=== PATIENT | male | born 1940 | race Caucasian/White ===

== ENCOUNTER → 2016-07-17 08:42 | Outpatient (CLI) | payer MEDICARE ==
[2015-05-26 11:50] VITALS: BMI 27.6
[~2016-07-17 08:42] MED LIST: ADVAIR 250/501 DISK INH; ARICEPT10 MG PO; BACTROBAN NASAL1 GM NASAL; BAYER CHEWABLE81 MG PO; CORDARONE200 MG PO; ELIQUIS2.5 MG PO; FLOMAX0.4 MG PO; LIPITOR40 MG PO; LISINOPRIL5 MG PO; METOPROLOL TART50 MG PO; NITROSTAT0.4 MG SL; PROVENTIL HFA6.7 GM INH; SINEMET 25-1001 EACH PO; SPIRIVA18 MCG INH; ULTRAM50 MG PO; VIAGRA25 MG PO
== END | disposition home or self-care (01) ==
LOC: D.RT 08:42
DX: J44.9 Chronic obstructive pulmonary disease, unspecified (principal)

== ENCOUNTER → 2016-12-18 07:58 | Outpatient (CLI) | payer MEDICARE ==
[2015-05-26 11:50] VITALS: BMI 27.6
== END | disposition home or self-care (01) ==
LOC: D.US 07:58
DX: I71.4 Abdominal aortic aneurysm, without rupture (principal)

== ENCOUNTER 2017-03-05 13:14 | Emergency (ER) | payer MEDICARE ==
[2015-05-26 11:50] VITALS: BMI 27.6
[2017-03-05 14:55] LABS: BASOPHILS 0.3 % (0-2); HEMATOCRIT 40.3 % (42.0-54.0); IMMATURE GRANULOCYTES 0.5 % (0-5); LYMPHOCYTES 19.3 % (15-50); MCH 33.5 pg (26.0-34.0); MCHC 32.3 g/dL (31.0-37.0); MCV 103.9 fL (80.0-100.0); MEAN PLATELET VOLUME 9.6 fL (7.4-10.4); NEUTROPHILS 62.9 % (40-80); PLATELET COUNT 237 10x3/uL (130-400); RBC 3.88 10x6/uL (4.20-6.10); RDW 14.2 % (11.5-14.5)
[2017-03-05 15:06] LABS: APPEARANCE TURBID (CLEAR); BILIRUBIN NEGATIVE (NEGATIVE); COLOR RED (YELLOW); GLUCOSE NEGATIVE (NEGATIVE); KETONE NEGATIVE (NEGATIVE); NITRITE NEGATIVE (NEGATIVE); PROTEIN 1+ mg/dL (NEGATIVE); SPECIFIC GRAVITY 1.015 (1.005-1.020); UROBILINOGEN NORMAL (NORMAL)
[2017-03-05 15:07] LABS: BACTERIA MANY /hpf (NONE SEEN); RED CELLS - URINE >50 /hpf (0-5); WHITE CELLS - URINE 0-5 /hpf (0-5)
[2017-03-05 15:14] LABS: ALBUMIN 3.9 g/dL (3.4-5.0); ANION GAP 14.7 mmol/L (8-16); BILIRUBIN - TOTAL 0.62 mg/dL (0.2-1.3); CREATININE - SERUM 1.1 mg/dL (0.6-1.3); POTASSIUM - SERUM 4.7 mmol/L (3.5-5.1); PROTEIN - SERUM 7.2 g/dL (6.4-8.2)
[2017-03-07] MEDS ORDERED: ASPIRIN EC81 M1 PO (16:17)
[2017-03-07] MEDS ORDERED: SINEMET 25-1001 EACH PO (16:22)
== END 2017-03-05 18:10 | disposition home or self-care (01) ==
LOC: D.ER 13:14
PROVIDERS: Family Medicine
DX: R31.9 Hematuria, unspecified (principal)

== ENCOUNTER 2017-03-09 06:00 | Day surgery (SDC) | payer MEDICARE ==
[~2017-03-09] VITALS: Ht 172.7 cm; Wt 77.3 kg
[~2017-03-09 06:00] MED LIST changes: +ASPIRIN EC81 M1 PO
[2017-03-09 12:54] VITALS: BP 98/62; BMI 26.6
--- NOTE | 2017-03-09 16:16 | NUR ---
2500 ML URINE DRAINED FROM LOPEZ IN PACU
[2017-03-09 17:03] VITALS: BP 174/99
--- NOTE | 2017-03-09 17:10 | NUR ---
PT ARRIVED TO FLOOR FROM RECOVERY ROOM. ASSESSMENTS COMPLETE AT THIS TIME. AT BEDSIDE.
[2017-03-09 17:18] VITALS: BP 174/99; Ht 172.7 cm; Wt 77.3 kg
--- NOTE | 2017-03-09 17:38 | OP ---
PATIENT NAME: BETTY HAMMOND JR MEDICAL RECORD: [id number] :40 LOCATION:D.MS [id number] ADMISSION DATE: SURGEON: RAMOS AUGUSTE MD DATE OF OPERATION: 03/09/2017 SURGEON: Ramos Auguste MD ANESTHESIA: General anesthesia by Martin Whiting MD PREOPERATIVE DIAGNOSES: Gross hematuria, possible bladder tumor. PROCEDURES: Cystoscopy; insertion of a left ureteral stent; and bladder tumor resection, 3 cm. FINDINGS: Nonobstructive prostate. Large fungating tumor mass on the left lateral wall of the bladder, about 3 cm in diameter. Tumor is close to the left ureteral orifice. SPECIMENS: Bladder tumor. BLOOD LOSS: Minimal. CLINICAL HISTORY: This is a 76-year-old male who is referred by Dr. Ulrich with gross hematuria and passage of clots. The hematuria is painless. It started on 03/02/2017. He went to the Emergency Room. A CT scan shows normal kidneys with a 2-mm nonobstructing right renal stone. There are large masses in the bladder, which maybe blood clots, but there may also be bladder tumor in there. He has history of smoking one pack per day since age 18 until age 65. He has significant history of coronary artery disease with previous myocardial infarction and one coronary artery stent placed at age 65 while in [place], [place]. His current wood sawyer is Dr. Montano. He also has hypertension, aortoiliac stent for an aortic aneurysm, and a previous right hip replacement. Finally, he recently fell and he has a right humeral fracture and fracture of his right sixth rib, which is going to need repair in the near future. We had Dr. Montano give cardiac clearance and he comes now to have cystoscopy, and if I do see a bladder tumor, he will have it resected. He is not allergic to any medications and he was given Ancef rehabilitation assistant to the OR. DESCRIPTION OF PROCEDURE: The patient was given IV sedation. We then placed him into dorsal lithotomy position and prepped and draped. A 20-Citizen Of [place] cystoscope with 30-degree lens was used for visualization. Penile urethra was normal. Prostatic urethra was nonobstructive. Going into the bladder, a large fungating tumor was seen on the left lateral wall. I would estimate the tumor base to be about 3 cm in diameter. I found the left ureteral orifice to be quite clear and at a slight distance from it, but it is very close to the tumor base and may be injured during the resection. Therefore, I will have to insert a left ureteral stent for the resection. The rest of the bladder did not show any other tumor. Because of the location of left lateral wall, there is risk of triggering the obturator reflex. Therefore, I asked anesthesia to convert him to general anesthetic and to paralyze him to prevent the reflex from being triggered by my resection electrical current. Through the cystoscope, I inserted a 5-Citizen Of [place] open-ended ureteral catheter into the left ureteral orifice and pushed it up into the kidney. The scope was then removed, leaving the ureteral catheter in place. The resectoscope was then placed. We used the bipolar resectoscope with normal saline irrigation. The tumor was resected into OPERATIVE REPORT [id number] BETTY HAMMOND JR the bladder wall. I did make sure to get some of the bladder wall muscle. The specimens were evacuated out of the bladder using an Lifeblob evacuator. No further specimens were seen floating in the bladder. The ureteral catheter was entirely removed. The scope was then removed. A 22-Citizen Of [place] 3-way Marrero catheter was inserted into the bladder and the balloon was inflated with 10 cc of sterile water. I started him on continuous bladder irrigation with normal saline. I will put him in observation overnight for the continuous bladder irrigation. If the irrigation is relatively clear tomorrow, he can then be sent home. TRANSINT:[id number] Voice Confirmation ID: [id number] DOCUMENT ID: [id number] RAMOS AUGUSTE MD at 1738 CC: [id number] DICTATION DATE: 03/09/17 1537 LITIGATION ATTORNEY: 03/09/17 1712 [facility] [address] [id number]
[2017-03-09 20:00] VITALS: BP 82/49
[2017-03-10] VITALS: BP 96/46
--- NOTE | 2017-03-10 03:56 | NUR ---
ASSESSED AT THE BEGINNING OF THE SHIFT. PT IS ALERT AND CONFUSED. HIS REMAINS AT THE BEDSIDE. HE HAS A THREE WAY LOPEZ WITH IRRIGATION INFUSING WELLL AND URINE REMAINS BLOODY. HE HAS O2 AT 2.5 LITERS PER N/C . HE HAS A HX OF A STROKE BUT NO WEAKNESS TO EITHER SIDE IS NOTED. 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 HE WAS ABLE TO TAKE ALL HIS MEDS AND WE HAVE CHECKED ON HIS LOPEZ FREQUENTLY DURING THE NIGHT TO MAKE SURE OF NO BLOOD CLOTS. HE DOES HAVE A HEALING RT HUMEROUS FRACTURE AND ONE RIB FROM A FALL SEVERAL WEEKS AGO BUT HE IS DOING WELL WITH IT. ONE TIME HE EVEN STOOD BY THE BED FOR A WHILE TO JUST GET OUT OF THE BED FOR JUST A LITTLE BIT. THE BED IS LOW, RAILS UP X'S 2 WITH THE CALL LIGHT AT HAND.
[2017-03-10 04:00] VITALS: BP 113/66
--- NOTE | 2017-03-10 08:30 | NUR ---
ASSESSMENT COMPLETE, VS STABLE. NO COMPLAINTS AT THIS TIME. LOPEZ INTACT WITH IRRIGATION INFUSING. URINE LIGHT PINK, NO CLOTS. FAMILY AT BEDSIDE. CALL LIGHT WITHIN REACH.
[2017-03-10 10:10] VITALS: BP 117/72
[2017-03-10] MEDS ORDERED: TYLENOL W/CODEI1 TAB PO (13:02)
[2017-03-10] MEDS ORDERED: OXYBUTYNIN CHLOR5 MG PO (13:02)
[2017-03-10 13:39] VITALS: BP 120/74
--- NOTE | 2017-03-10 15:14 | NUR ---
PAUL TRUJILLOCLINICAL INFORMATICS SPEC IN SPEAKING WITH PATIENTS ABOUT HAVING TO WAIT SO LONG FOR CATH PLUG BFORE DC.
--- NOTE | 2017-03-10 15:15 | NUR ---
PATIENT RECIEVED DC INSTRUCTIONS. IRRIGATION STOPPED AND PLUG PLACED OVER IRRIGATION LOPEZ SITE. DEMONSTRATED TO PATIENTS HOW TO CHANGE DRAINAGE BAG TO LEG BAG AND HOW TO EMPTY BOTH BAGS. VERBALIZED UNDERSTANDING. NO QUESTIONS AT THIS TIME. PRESCRIPTION GIVEN TO PATIENT . IV WAS PULLED OUT BY PATIENT WITH CATH TIP INTACT. WAITING FOR WC FOR DC. CALL CHENCHO JAMES.
== END 2017-03-10 16:21 | disposition home or self-care (01) ==
LOC: OBSVTIME → D.PAN 06:00 → D.OPS 14:00 → D.MS 16:02 → D.PAN 16:03 → OBSVTIME 16:03 → D.MS 16:03 → D.PAN 03-10 16:21
PROVIDERS: Urology
PROC: 0T768DZ Dilation of Right Ureter with Intraluminal Device, Via Natural or Artificial Opening Endoscopic (ICD-10-PCS; principal; 2017-03-09 14:00)
PROC: 0TBB8ZZ Excision of Bladder, Via Natural or Artificial Opening Endoscopic (ICD-10-PCS; 2017-03-09 14:00)
DX: C67.9 Malignant neoplasm of bladder, unspecified (principal); I10 Essential (primary) hypertension; I25.10 Atherosclerotic heart disease of native coronary artery without angina pectoris; Z87.891 Personal history of nicotine dependence

== ENCOUNTER → 2017-04-02 09:01 | Outpatient (CLI) | payer MEDICARE ==
[2017-03-09 17:18] VITALS: BMI 25.9
[~2017-04-02 09:01] MED LIST changes: +OXYBUTYNIN CHLOR5 MG PO; +TYLENOL W/CODEI1 TAB PO
== END | disposition home or self-care (01) ==
LOC: D.RAD 09:01
DX: J44.9 Chronic obstructive pulmonary disease, unspecified (principal)

== ENCOUNTER → 2017-06-27 09:22 | Outpatient (CLI) | payer MEDICARE ==
[2017-03-09 17:18] VITALS: BMI 25.9
[~2017-06-27 09:22] MED LIST changes: +ICAPS AREDS1 TAB.SA PO; +KEFLEX500 MG PO; +LAMISIL250 MG PO; +VIAGRA100 MG PO
== END | disposition home or self-care (01) ==
LOC: D.CT 09:22
DX: I71.4 Abdominal aortic aneurysm, without rupture (principal)

== ENCOUNTER 2017-07-11 05:40 | Day surgery (SDC) | payer MEDICARE ==
[2017-07-10 08:52] LABS: HEMATOCRIT 41.9 % (42.0-54.0); HEMOGLOBIN 13.8 g/dL (13.5-17.5); MCHC 32.9 g/dL (31.0-37.0); MCV 100.2 fL (80.0-100.0); MEAN PLATELET VOLUME 10.1 fL (7.4-10.4); RBC 4.18 10x6/uL (4.20-6.10); RDW 14.7 % (11.5-14.5); WBC 8.6 10x3/uL (4.8-10.8)
[~2017-07-11] VITALS: Ht 172.7 cm; Wt 79.4 kg
--- NOTE | ~2017-07-11 | OP ---
PATIENT NAME: BETTY HAMMOND JR MEDICAL RECORD: [id number] :40 LOCATION:D.OPS ADMISSION DATE: SURGEON: RAMOS AUGUSTE MD DATE OF OPERATION: 07/11/2017 SURGEON: Ramos Auguste MD ANESTHESIA: MAC by Immanuel Moody CRNA PREOPERATIVE DIAGNOSIS: History of bladder cancer. PROCEDURE: Cystoscopy. FINDINGS: No bladder tumors. ESTIMATED BLOOD LOSS: None. CLINICAL HISTORY: This is a 77-year-old male, who was found to have a 3 cm left lateral wall bladder tumor in March 2017. The cancer was noninvasive. He had the tumor resected at that time. He comes now for surveillance cystoscopy. He is not allergic to any medications. He was given Ancef personal lines insurance advisor to the OR. DESCRIPTION OF PROCEDURE: The patient was given IV sedation. He was then placed in the dorsal lithotomy position and prepped and draped. A 17-Latvian cystoscope with 30-degree lens was used for visualization. Penile urethra was normal. No strictures. Prostatic urethra shows mild lateral lobe enlargement. There is a tall bladder neck. Going into the bladder, there were single ureteral orifices on each side. The scar from the previous tumor resection site could be seen on the left lateral wall. No tumor recurrences were seen anywhere. The bladder was then emptied through the cystoscope sheath and then the scope was entirely removed. I will schedule a repeat cystoscopy in 3 months' time. TRANSINT:[id number] Voice Confirmation ID: [id number] DOCUMENT ID: [id number] RAMOS AUGUSTE MD at 0906 CC: [id number] DICTATION DATE: 07/11/17817 LION TAMER: 07/11/17 0843 [facility] [address] [id number]
[2017-07-11 06:37] VITALS: BP 121/72; Ht 172.7 cm; Wt 79.4 kg
== END 2017-07-11 09:08 | disposition home or self-care (01) ==
LOC: D.OPS 05:40 → D.PAN 07:30 → D.OPS 07:30
PROVIDERS: Anesthesiology
DX: C67.2 Malignant neoplasm of lateral wall of bladder (principal); G47.33 Obstructive sleep apnea (adult) (pediatric); I10 Essential (primary) hypertension; J44.9 Chronic obstructive pulmonary disease, unspecified; G20 Parkinson's disease; F02.80 Dementia in other diseases classified elsewhere, unspecified severity, without behavioral disturbance, psychotic disturbance, mood disturbance, and anxiety; Z01.812 Encounter for preprocedural laboratory examination

== ENCOUNTER 2017-10-18 05:13 | Day surgery (SDC) | payer MEDICARE ==
[~2017-10-18] VITALS: Ht 172.7 cm; Wt 78.0 kg
--- NOTE | ~2017-10-18 | OP ---
PATIENT NAME: BETTY HAMMOND JR MEDICAL RECORD: [id number] :40 LOCATION:D.OPS ADMISSION DATE: SURGEON: RAMOS AUGUSTE MD DATE OF OPERATION: 10/18/2017 SURGEON: Ramos Auguste MD ANESTHESIA: MAC by Immanuel Moody CRNA. DIAGNOSIS: History of bladder cancer. PROCEDURE: Cystoscopy. FINDINGS: Moderately obstructive prostate. Single ureteral orifices bilaterally. No bladder tumors. ESTIMATED BLOOD LOSS: None. CLINICAL HISTORY: This is a 77-year-old male, who is a former smoker. In March of 2017, he was found to have bladder cancer, which I resected from the left lateral wall. It was 3 cm in size. He comes today for surveillance cystoscopy. He is not allergic to any medication. He had ampicillin and sulbactam 1.5 grams IV given to him. DESCRIPTION OF PROCEDURE: The patient was given IV sedation. He was placed in dorsal lithotomy position. Lidocaine jelly was inserted into the urethra. A 17-Yemeni cystoscope with 30-degree lens was used for visualization. Penile urethra was normal with no strictures. Prostatic urethra shows some lateral lobe enlargement and an elevated bladder neck. In the bladder, no bladder tumors were seen. The bladder was emptied through the cystoscope sheath and then the scope was removed. I will see him back in 6 months' time for a repeat surveillance cystoscopy. TRANSINT:[id number] Voice Confirmation ID: [id number] DOCUMENT ID: [id number] RAMOS AUGUSTE MD at 1022 CC: [id number] DICTATION DATE: 10/18/17 0756 HYPO SPLASHER: 10/18/17 0924 [facility] 10/18/[address] [address]
[2017-10-18 05:33] LABS: BASOPHILS 0.2 % (0-2); HEMATOCRIT 40.8 % (42.0-54.0); HEMOGLOBIN 13.7 g/dL (13.5-17.5); IMMATURE GRANULOCYTES 0.2 % (0-5); MCH 34.2 pg (26.0-34.0); MCHC 33.6 g/dL (31.0-37.0); MCV 101.7 fL (80.0-100.0); MEAN PLATELET VOLUME 9.5 fL (7.4-10.4); MONOCYTES 13.6 % (2-11); PLATELET COUNT 179 10x3/uL (130-400); RBC 4.01 10x6/uL (4.20-6.10); RDW 13.6 % (11.5-14.5); WBC 5.7 10x3/uL (4.8-10.8)
[2017-10-18 05:48] LABS: APTT 36.9 SECONDS (22.8-39.4); INR 1.11 (0.85-1.17); PROTIME 13.9 SECONDS (11.6-15.0)
[2017-10-18 06:06] VITALS: BP 126/69; Ht 172.7 cm; Wt 78.0 kg
== END 2017-10-18 10:00 | disposition home or self-care (01) ==
LOC: D.OPS 05:13 → D.PAN 07:30 → D.OPS 10:00
PROVIDERS: Anesthesiology
DX: N40.1 Benign prostatic hyperplasia with lower urinary tract symptoms (principal); N13.8 Other obstructive and reflux uropathy; Z85.51 Personal history of malignant neoplasm of bladder; Z87.891 Personal history of nicotine dependence; Z01.812 Encounter for preprocedural laboratory examination

== ENCOUNTER → 2017-12-11 19:22 | Outpatient (CLI) | payer MEDICARE ==
[2017-10-18 06:06] VITALS: BMI 26.2
== END | disposition home or self-care (01) ==
LOC: D.SLEEP 19:22
DX: G47.19 Other hypersomnia (principal); Z01.812 Encounter for preprocedural laboratory examination

== ENCOUNTER → 2018-03-01 13:44 | Outpatient (CLI) | payer MEDICARE ==
[2017-10-18 06:06] VITALS: BMI 26.2
== END | disposition home or self-care (01) ==
LOC: D.RT 13:44
DX: J44.9 Chronic obstructive pulmonary disease, unspecified (principal)

== ENCOUNTER → 2018-05-06 14:49 | Outpatient (CLI) | payer MEDICARE ==
[2017-10-18 06:06] VITALS: BMI 26.2
[~2018-05-06 14:49] MED LIST changes: +ACETAMINOPHEN500 M1 PO; +BROVANA15 MCG/2 M INH; +PULMICORT0.25 MG/1 INH; +VIAGRA25 MG; +ZOLOFT50 MG PO
[2018-05-08 04:10] LABS: TESTOSTERONE - FREE 3.5 pg/mL (6.6-18.1); TESTOSTERONE - SERUM 385 ng/dL (264-916)
== END | disposition home or self-care (01) ==
LOC: D.LAB 14:49
PROVIDERS: Internal Medicine Pulmonary Disease
DX: G47.19 Other hypersomnia (principal)

== ENCOUNTER 2018-05-23 05:11 | Day surgery (SDC) | payer MEDICARE ==
[~2018-05-23] VITALS: Ht 172.7 cm; Wt 78.0 kg
[~2018-05-23 05:11] MED LIST changes: -ACETAMINOPHEN500 M1 PO; -PULMICORT0.25 MG/1 INH; -VIAGRA25 MG; -ZOLOFT50 MG PO
[2018-05-23 05:40] LABS: BASOPHILS 0.4 % (0-2); EOSINOPHILS 3.7 % (0-7); HEMATOCRIT 34.7 % (42.0-54.0); HEMOGLOBIN 11.2 g/dL (13.5-17.5); IMMATURE GRANULOCYTES 0.4 % (0-5); LYMPHOCYTES 23.8 % (15-50); MCHC 32.3 g/dL (31.0-37.0); MCV 99.1 fL (80.0-100.0); MEAN PLATELET VOLUME 9.1 fL (7.4-10.4); MONOCYTES 13.2 % (2-11); NEUTROPHILS 58.5 % (40-80); PLATELET COUNT 205 10x3/uL (130-400); RDW 13.6 % (11.5-14.5); WBC 5.2 10x3/uL (4.8-10.8)
[2018-05-23 06:01] LABS: ANION GAP 13.8 mmol/L (8-16); CALCIUM 8.7 mg/dL (8.5-10.1); CARBON DIOXIDE 23.3 mmol/L (21.0-32.0); CREATININE - SERUM 1.1 mg/dL (0.6-1.3); POTASSIUM - SERUM 4.1 mmol/L (3.5-5.1)
[2018-05-23 06:11] LABS: APTT 35.6 SECONDS (22.8-39.4); INR 1.08 (0.85-1.17); PROTIME 13.5 SECONDS (11.6-15.0)
[2018-05-23] MEDS ORDERED: ZOLOFT50 MG PO (06:32)
[2018-05-23] MEDS ORDERED: ACETAMINOPHEN500 M1 PO (06:33)
[2018-05-23] MEDS ORDERED: PULMICORT0.25 MG/1 INH ×2 (06:33→06:34)
[2018-05-23] MEDS ORDERED: VIAGRA25 MG (06:34)
[2018-05-23 06:43] VITALS: BP 118/67; Ht 172.7 cm; Wt 78.0 kg
--- NOTE | 2018-05-23 08:48 | NUR ---
ANESTHESIA AT BEDSIDE. EKG CHANGES NOTED PER ANESTHESIA. RT CALLED TO BEDSIDE FOR 12-LEAD.
--- NOTE | 2018-05-23 09:35 | OP ---
PATIENT NAME: BETTY HAMMOND JR MEDICAL RECORD: [id number] :40 LOCATION:D.OPS ADMISSION DATE: SURGEON: RAMOS AUGUSTE MD DATE OF OPERATION: 05/23/2018 SURGEON: Ramos Auguste MD ANESTHESIA: General anesthesia by Sumit Negron CRNA. DIAGNOSIS: Recurrent papillary bladder tumors on the anterior wall of the bladder, about 3 cm cumulative size. PROCEDURES: Cystoscopy, transurethral resection of bladder tumors 3 cm in diameter. FINDINGS: Papillary bladder tumors, cumulatively about 3 cm in diameter on the anterior bladder wall. SPECIMENS: Bladder tumors. BLOOD LOSS: None. CLINICAL HISTORY: This is a 78-year-old male with a history of bladder cancer, which was resected from the left lateral wall in 02/2017. He also has history of Parkinson dementia and spinal stenosis. He had a surveillance cystoscopy on 10/18/2017, which showed no bladder tumors. He has some enlargement of the lateral lobes of prostate and an elevated bladder neck. He comes today to have a 6 monthly surveillance cystoscopy. He reports no hematuria. HE IS ALLERGIC TO REGLAN. He was given Ancef risk control manager to the OR. Initially for his cystoscopy, we had him under TIVA. DESCRIPTION OF PROCEDURE: The patient was initially given IV sedation. He was then placed into dorsal lithotomy position and prepped and draped. A 17-Yoruba cystoscope with 30-degree lens was used for visualization. The bladder looked fine except when I turned the scope to look at the anterior wall. There was significant colonies of papillary tumor. We were using water for irrigation. Therefore, we switched to the monopolar resectoscope. The patient, because of his Parkinson's, tends to have spasmodic jerks of the legs. In order to have a stable target for resection, we gave him general anesthetic and muscle paralysis. My physical laboratory assistant placed pressure on the suprapubic region of the abdomen to push the anterior bladder wall down. The tumors were resected in long furrows, which encompassed all the multiple different colonies. These completely removed all of the tumors. The specimens were removed using an AiCuris evacuator. The specimens were collected and sent to pathology in formalin. At the end of the procedure, there were no visible tumors left. There was no active bleeding from the resection site. The scope was removed. A 20-Yoruba 3-way Marrero catheter was placed into the bladder. The balloon was inflated with 10 cc of sterile water. A catheter plug was placed into the inflow port. The patient will go home today with a prescription for oxybutynin 5 mg p.o. t.i.d. p.r.n. for bladder spasms and Tylenol No. 3 times 20 tablets. I will see him in followup in 1 week's time to remove the Marrero catheter and to review the pathology with him. TRANSINT:[id number] Voice Confirmation ID: [id number] DOCUMENT ID: [id number] OPERATIVE REPORT [id number] BETTY HAMMOND JR, RAMOS Montero MD at 0935 CC: [id number] DICTATION DATE: 05/23/18 0849 VISUAL COORDINATOR: 05/23/18 0912 [facility] [address] [place] [address]
--- NOTE | 2018-05-23 09:50 | NUR ---
REC'D FROM RR. FAMILY AT BEDSIDE. COFFEE BROUGHT TO PT. LOPEZ TO GRAVITY DRAINAGE WITH YELLOW URINE NOTED IN BAG. AWAITING FOR DR BAH TO ROUND ON PT DUE TO EKG CHANGES POST PROCEDURE. NO C/O VOICED.
--- NOTE | 2018-05-23 09:55 | NUR ---
SPOKE WTIH DR BAH REGARDING DR KNAPP'S REQUEST FOR HIM TO SEE PT BEFORE DC.
--- NOTE | 2018-05-23 10:08 | NUR ---
DR BAH ROUNDED ON PT. RELATES IS CLEAR TO DC AND THAT DR GARCIA'S OFFICE WILL NOTIFY HIM FOR AND APPOINTMENT. EATING FL TRAY.
--- NOTE | 2018-05-23 10:30 | NUR ---
TOLERATED FL TRAY. IV DC'D WITH CATHETER INTACT.
--- NOTE | 2018-05-23 11:25 | NUR ---
WRITTEN AND VERBAL DC INST. GIVEN TO PT ALONG WITH RX. VERBALIZED UNDERSTANDING.
--- NOTE | 2018-05-23 11:35 | NUR ---
DC'D HOME WITH FAMILY VIA [employer] VEHICLE. TAKEN TO VEHICLE VIA WC. STABLE AT TIME OF DC,.
[2018-05-24] MEDS ORDERED: OXYBUTYNIN CHLOR5 MG PO (15:34)
== END 2018-05-23 11:35 | disposition home or self-care (01) ==
LOC: D.OPS 05:11 → D.PAN 07:30 → D.OPS 11:30
PROVIDERS: Anesthesiology
DX: D49.4 Neoplasm of unspecified behavior of bladder (principal); G20 Parkinson's disease; F02.80 Dementia in other diseases classified elsewhere, unspecified severity, without behavioral disturbance, psychotic disturbance, mood disturbance, and anxiety; E78.00 Pure hypercholesterolemia, unspecified; G47.33 Obstructive sleep apnea (adult) (pediatric); G25.81 Restless legs syndrome; J44.9 Chronic obstructive pulmonary disease, unspecified; I71.4 Abdominal aortic aneurysm, without rupture; Z87.891 Personal history of nicotine dependence; I73.9 Peripheral vascular disease, unspecified; Z88.8 Allergy status to other drugs, medicaments and biological substances; Z79.899 Other long term (current) drug therapy; Z01.812 Encounter for preprocedural laboratory examination

== ENCOUNTER 2018-05-23 23:34 | Emergency (ER) | payer MEDICARE ==
[~2018-05-23] VITALS: Ht 172.7 cm; Wt 76.4 kg
[~2018-05-23 23:34] MED LIST changes: +ACETAMINOPHEN500 M1 PO; +PULMICORT0.25 MG/1 INH; +VIAGRA25 MG; +ZOLOFT50 MG PO
[2018-05-23 23:45] VITALS: Ht 172.7 cm; Wt 76.4 kg
[2018-05-24 00:54] VITALS: BP 132/78
[2018-05-24] MEDS ORDERED: OXYBUTYNIN CHLOR5 MG PO (15:34)
== END 2018-05-24 00:55 | disposition home or self-care (01) ==
LOC: D.ER 23:34
DX: N99.89 Other postprocedural complications and disorders of genitourinary system (principal); R10.9 Unspecified abdominal pain; R33.9 Retention of urine, unspecified

== ENCOUNTER 2018-05-24 11:33 | Inpatient (IN) | payer MEDICARE ==
[~2018-05-24] VITALS: Ht 172.7 cm; Wt 77.1 kg
--- NOTE | 2018-05-24 11:42 | NUR ---
TRAUMA BAND # [id number] PLACED ON PATIENT.
[2018-05-24 12:44] LABS: BASOPHILS 0.1 % (0-2); EOSINOPHILS 0.6 % (0-7); HEMATOCRIT 31.8 % (42.0-54.0); HEMOGLOBIN 10.6 g/dL (13.5-17.5); IMMATURE GRANULOCYTES 0.3 % (0-5); LYMPHOCYTES 6.9 % (15-50); MCH 32.3 pg (26.0-34.0); MCHC 33.3 g/dL (31.0-37.0); MEAN PLATELET VOLUME 9.3 fL (7.4-10.4); MONOCYTES 7.8 % (2-11); NEUTROPHILS 84.3 % (40-80); PLATELET COUNT 199 10x3/uL (130-400); RBC 3.28 10x6/uL (4.20-6.10); RDW 13.7 % (11.5-14.5)
[2018-05-24 12:51] LABS: WBC 10.8 10x3/uL (4.8-10.8)
[2018-05-24 12:58] LABS: ALBUMIN 3.2 g/dL (3.4-5.0); ANION GAP 15.1 mmol/L (8-16); BILIRUBIN - TOTAL 0.76 mg/dL (0.2-1.3); CALCIUM 8.6 mg/dL (8.5-10.1); CARBON DIOXIDE 22.1 mmol/L (21.0-32.0); POTASSIUM - SERUM 4.2 mmol/L (3.5-5.1); PROTEIN - SERUM 6.2 g/dL (6.4-8.2)
[2018-05-24 12:59] LABS: CREATININE - SERUM 1.4 mg/dL (0.6-1.3)
--- NOTE | 2018-05-24 14:23 | MORECARE ---
CASE MANAGEMENT DISCHARGE SUMMARY PATIENT: BETTY HAMMOND JR UNIT: [id number] ADM DATE: 05/24/18 AGE: 78 : 40 SEX: M ROOM/BED: D.2208 AUTHOR: ADILIA OLIVEIRA PHYSICIAN: REFERRING PHYSICIAN: REYNALDO MARINA MD DATE OF SERVICE: 05/24/18 Discharge Plan Patient Name: BETTY HAMMOND [facility] [facility] 1940 Planned Disposition: Inpatient Rehab Anticipated Discharge Date: 05/27/18 Discharge Date: Expected LOS: 3 Initial Reviewer: [email or web address] Initial Review Date: 05/24/2018 Generated: 05/24/18 3:23 pm Patient Name: BETTY HAMMOND Page [id number] at 1423 All edits/amendments must be made on the electronic document DICTATION DATE: 05/24/18 142 BANDER: EZRA 05/24/18 1422 RPT#: [id number] DC DATE: STATUS: ADM IN [facility] [address] [place] [address] END OF REPORT
--- NOTE | 2018-05-24 14:32 | MORECARE ---
CASE MANAGEMENT DISCHARGE SUMMARY PATIENT: BETTY LANDON JR UNIT: [id number] ADM DATE: 05/24/18 AGE: 78 : 40 SEX: M ROOM/BED: D.2208 AUTHOR: ADILIA OLIVEIRA PHYSICIAN: REFERRING PHYSICIAN: REYNALDO MARINA MD DATE OF SERVICE: 05/24/18 Discharge Plan Patient Name: BETTY LANDON Facility: [facility]:[place] : 1940 Planned Disposition: Inpatient Rehab Anticipated Discharge Date: 05/27/18 Discharge Date: Expected LOS: 3 Initial Reviewer: [email or web address] Initial Review Date: 05/24/2018 Generated: 05/24/18 3:31 pm DCPIA - Discharge Planning Initial Assessment Updated by [email or web address]: Aline Contreras on 05/24/18 2:26 pm * Is the patient Alert and Oriented? No * How many steps to enter\exit or inside your home? ONe * PCP Dr. Ulrich- slag wheeler Dr. Saravia - Tutor Coordinator Dr. Robbins - Urologist Dr. Joe Evans - Neurologist * Pharmacy [facility] * Preadmission Environment Home with Family * ADLs Partial Dependent * Partial ADLs (Assistance needed) Dressing Medication Management * Equipment Cane CPAP Nebulizer Oxygen Wheelchair * List name and contact numbers for known caregivers / representatives who currently or will assist patient after discharge: Candido Landon - [place]AR - - [phone] * Verbal permission to speak to the caregivers and representatives has been obtained from the patient. Yes * Community resources currently utilized Other * Please name any agencies selected above. Was going to outpatient therapy for his shoulder at [facility] [place] [facility]. * Additional services required to return to the preadmission environment? Yes * Can the patient safely return to the preadmission environment? No * Has this patient been hospitalized within the prior 30 days at any hospital? No Last DP export: 05/24/18 1:23 pm Patient Name: BETTY LANDON Page 23814 at 1432 All edits/amendments must be made on the electronic document DICTATION DATE: 05/24/18 1431 OFFICE SERVICES MANAGER: EZRA 05/24/18 1431 RPT#: [id number] DC DATE: STATUS: ADM IN [facility] [address] [place] [address] END OF REPORT
--- NOTE | 2018-05-24 14:44 | MORECARE ---
CASE MANAGEMENT DISCHARGE SUMMARY PATIENT: BETTY LANDON JR UNIT: [id number] ADM DATE: 05/24/18 AGE: 78 : 40 SEX: M ROOM/BED: D.2208 AUTHOR: ADILIA OLIVEIRA PHYSICIAN: REFERRING PHYSICIAN: REYNALDO MARINA MD DATE OF SERVICE: 05/24/18 Discharge Plan Patient Name: BETTY LANDON [facility]: [facility]:[place] : 1940 Planned Disposition: Inpatient Rehab Anticipated Discharge Date: 05/27/18 Discharge Date: Expected LOS: 3 Initial Reviewer: [email or web address] Initial Review Date: 05/24/2018 Generated: 05/24/18 3:44 pm DCP- Discharge Planning Updated by [email or web address]: Aline Contreras on 05/24/18 1:[address] Patient Name: BETTY LANDON Admission Status: ER Accout number: [id number] Admission Date: 05-24-2018 : 1940 Admission Diagnosis: Attending: REYNALDO MARINA Current LOS: 1 Anticipated DC Date: 05-27-2018 Planned Disposition: Inpatient Rehab Primary Insurance: MEDICARE A & B Discharge Planning Comments: CM met with patient and his (BHASKAR) Candido to complete initial dc planning assessment. CM educated patient and his on the CM role and verbal consent given by patient's to complete assessment. Patient had a cystoscopy yesterday and is not oriented today due to the anesthesia. Patient lives at home with his . She reports he is mostly independent in his care but she does have to assist him with putting on his pressure stockings and tying his shoes. She reports she also puts his medications together for him as well. CM discussed availability of home health, rehab services, and medical equipment. Candido reports that the last time he broke his other hip he went to inpatient rehab and she would like to consider that again once he is medically stable. Cm spoke to Sun in Inpatient Rehab letting her know of the potential referral. Patient choice form signed by Candido and placed on patient's chart. CM will continue to follow and will assist as needed with dc plans/needs. Account Group Supervisor: Aline Contreras Appended by Aline Contreras on 05/24/2018 14:41 ENROLLMENT SPECIALIST: Patient choice form signed by patient's and she was given the original and 2nd signed form placed on patients chart. DCPIA - Discharge Planning Initial Assessment Updated by [email or web address]: Aline Contreras on 05/24/18 2:26 pm * Is the patient Alert and Oriented? No * How many steps to enter\exit or inside your home? ONe * PCP Dr. Ulrich- operation research analyst Dr. Saravia - Life Consultant Dr. Robbins - Urologist Dr. Joe Evans - Neurologist * Pharmacy [facility] * Preadmission Environment Home with Family * ADLs Partial Dependent * Partial ADLs (Assistance needed) Dressing Medication Management * Equipment Cane CPAP Nebulizer Oxygen Wheelchair * List name and contact numbers for known caregivers / representatives who currently or will assist patient after discharge: Candido Landon - [place] - - [phone] * Verbal permission to speak to the caregivers and representatives has been obtained from the patient. Yes * Community resources currently utilized Other * Please name any agencies selected above. Was going to outpatient therapy for his shoulder at [facility] [place] [facility] the [facility]. * Additional services required to return to the preadmission environment? Yes * Can the patient safely return to the preadmission environment? No * Has this patient been hospitalized within the prior 30 days at any hospital? No Last DP export: 05/24/18 1:32 pm Patient Name: BETTY LANDON Page 87906 at 1444 All edits/amendments must be made on the electronic document DICTATION DATE: 05/24/181443 BONDING SUPERVISOR: EZRA 05/24/184 RPT#: [id number] DC DATE: STATUS: ADM IN [facility] [address] [place] [address] END OF REPORT
[2018-05-24] MEDS ORDERED: OXYBUTYNIN CHLOR5 MG PO (15:34)
--- NOTE | 2018-05-24 16:29 | NUR ---
PT AWAKE, DISORIENTED TO SITUATION AND TIME. PRESENT, SHALLOW, LABORED BREATHING, O2 AT 2LPM, RESPIRATORY HAS BEEN CONTACTED TO GIVE BREATHING, TREATMENT, LOPEZ CATH PRESENT, YELLOW/CLEAR URINE IN COLLECTION BAG, DENIES ANY CURRENT NEEDS, BED LOWERED AND LOCKED, CALL LIGHT WITHIN REACH. CPOC
[2018-05-24 16:37] VITALS: BP 92/48
[2018-05-24 17:31] VITALS: BP 92/48; BMI 25.9
--- NOTE | 2018-05-24 19:45 | NUR ---
RECEIVED REPORT, ASSUMED CARE, FAMILY AT BEDSIDE, CALL LIGHT IN REACH, LOPEZ TO GRAVITY, NO S/S OF DISTRESS NOTED, WILL CONITNUE POC
[2018-05-24 20:00] VITALS: BP 104/54
[2018-05-25] VITALS: BP 110/51
--- NOTE | 2018-05-25 02:05 | NUR ---
ASSESSED, PT IS ASLEEP WITH BIPAP IN PLACE AND NO DISTRESS NOTED. FAMILY AT THE BEDSIDE.
[2018-05-25 03:00] VITALS: BP 114/58
[2018-05-25 09:40] LABS: BASOPHILS 0.1 % (0-2); EOSINOPHILS 0.7 % (0-7); HEMATOCRIT 28.3 % (42.0-54.0); HEMOGLOBIN 9.3 g/dL (13.5-17.5); IMMATURE GRANULOCYTES 0.4 % (0-5); LYMPHOCYTES 7.2 % (15-50); MCHC 32.9 g/dL (31.0-37.0); MCV 97.3 fL (80.0-100.0); MONOCYTES 10.9 % (2-11); NEUTROPHILS 80.7 % (40-80); PLATELET COUNT 174 10x3/uL (130-400); RBC 2.91 10x6/uL (4.20-6.10); RDW 13.9 % (11.5-14.5)
[2018-05-25 10:03] LABS: ANION GAP 17.4 mmol/L (8-16); CALCIUM 7.9 mg/dL (8.5-10.1); CARBON DIOXIDE 19.6 mmol/L (21.0-32.0); CREATININE - SERUM 1.2 mg/dL (0.6-1.3)
--- NOTE | 2018-05-25 10:50 | NUR ---
ADMINISTERED PO SINMET TO KEEP ON SET SCHEDULE FROM THEIR HOME SUPPLY. PT RECIEVED PREOP MEDICATIONS, MANISHA, FROM RECOVERY PROVIDED OXYGEN VIA PORTABLE TANK AT 2LPM, ESCORTED OFF FLOOR FOR SURGERY.
[2018-05-25 11:03] VITALS: BP 132/70
[2018-05-25 13:28] VITALS: Ht 172.7 cm; Wt 77.1 kg
[2018-05-25 18:31] VITALS: BP 107/65
--- NOTE | 2018-05-25 18:58 | NUR ---
EYES CLOSED, SHORT SHALLOW BREATHING, LOPEZ, DARK URINE, DRESSING ON LEFT FOREARM CHANGED, DENIES ANY CURRENT NEEDS OR DISCOMFORTS, IV IN RIGHT AC, PATENT, INFUSING, BED LOWERED AND LOCKED, CALL LIGHT WITHIN REACH. CPOC
--- NOTE | 2018-05-25 19:30 | NUR ---
RECEIVED REPORT, ASSUMED CARE, AT BEDSIDE, CALL LIGHT IN REACH, BED LOWEST POSITION, DENIES NEEDS, LOPEZ TO GRAVITY, NO S/S OF DISTRESS NOTED, ASSESSMENT COMPLETE, SCD'S ON, BED ALARM ON, WILL CONTINUE POC
[2018-05-25 20:00] VITALS: BP 106/51
[2018-05-25 21:48] LABS: APPEARANCE CLEAR (CLEAR); COLOR STRAW (YELLOW); NITRITE NEGATIVE (NEGATIVE); PROTEIN 1+ mg/dL (NEGATIVE); SPECIFIC GRAVITY 1.015 (1.005-1.020)
[2018-05-25 21:49] LABS: BILIRUBIN NEGATIVE (NEGATIVE); GLUCOSE 50 mg/dL (NEGATIVE); KETONE NEGATIVE (NEGATIVE); UROBILINOGEN NORMAL (NORMAL)
[2018-05-25 21:50] LABS: BACTERIA MANY /hpf (NONE SEEN); EPITHELIAL CELLS 0-5 /hpf (0-5); MUCUS <1+ /lpf (NONE SEEN)
[2018-05-26] VITALS: BP 110/49
[2018-05-26 03:00] VITALS: BP 126/63
--- NOTE | 2018-05-26 05:20 | NUR ---
PT RESTING QUIETLY, EYES CLOSED. RESP EVEN, UNLABORED. NO DISTRESS NOTED. AGREE WITH AUTO TECH ASSESSMENT. CONTINUE PLAN OF CARE.
[2018-05-26 05:33] LABS: BASOPHILS 0 % (0-2); EOSINOPHILS 1.1 % (0-7); IMMATURE GRANULOCYTES 0.3 % (0-5); LYMPHOCYTES 10.3 % (15-50); MCHC 32.7 g/dL (31.0-37.0); MCV 97.8 fL (80.0-100.0); MEAN PLATELET VOLUME 8.9 fL (7.4-10.4); MONOCYTES 11.4 % (2-11); NEUTROPHILS 76.9 % (40-80); WBC 6.1 10x3/uL (4.8-10.8)
[2018-05-26 05:35] LABS: RBC 2.28 10x6/uL (4.20-6.10)
[2018-05-26 05:36] LABS: HEMATOCRIT 22.3 % (42.0-54.0); HEMOGLOBIN 7.3 g/dL (13.5-17.5); PLATELET COUNT 136 10x3/uL (130-400)
--- NOTE | 2018-05-26 05:43 | NUR ---
CALLED DR MARINA TO NOTIFY OF CRITICAL HEMIGLOBIN NO ANSWER
--- NOTE | 2018-05-26 05:45 | NUR ---
DR HOUSE CALLED ABOUT CRITICAL HGB ORDERED 2 UNITS PRBC
[2018-05-26 06:10] LABS: ANION GAP 16.8 mmol/L (8-16); CALCIUM 7.7 mg/dL (8.5-10.1); CARBON DIOXIDE 20.5 mmol/L (21.0-32.0); CREATININE - SERUM 1.1 mg/dL (0.6-1.3); POTASSIUM - SERUM 4.3 mmol/L (3.5-5.1)
[2018-05-26 07:09] LABS: % SATURATION 4 % (15-55); IRON 10 ug/dl (35-150); TOTAL IRON BIND CAPACITY 243 ug/dl (260-445); UNSAT IRON BIND CAPACITY 233 ug/dl (150-375)
--- NOTE | 2018-05-26 07:33 | OP ---
PATIENT NAME: BETTY LANDON JR MEDICAL RECORD: [id number] :40 LOCATION:[facility] [id number] ADMISSION DATE:05/24/18 SURGEON: OSVALDO HOUSE DO DATE OF OPERATION: 05/25/2018 PROCEDURE PERFOMRED: Left hip intramedullary nailing. PREOPERATIVE DIAGNOSIS: Left hip intertrochanteric fracture, closed and displaced. POSTOPERATIVE DIAGNOSIS: Left hip intertrochanteric fracture, closed and displaced. INDICATIONS: Mr. Landon is a 78-year-old male, who has Parkinson's and had recently had a bladder surgery done. He got up and does not know if he passed out or just lost his balance and fell onto his left hip. He was brought to the ER and seen to have a left intertroch fracture of his hip, and he was admitted to medicine and I was consulted. I informed his family of the risks and benefits of procedure. Due to his fragile state, he has COPD that is pretty severe, he may not do well postoperatively, but we would get a nail in him and likely do a spinal for anesthesia, that way we would not have to intubate him or sedate him very much. They are okay with that plan as long as we could do that and told him he would be able to weightbear right away and he could also get blood clots and have pulmonary embolism as well, but we will put him on DVT prophylaxis after. The patient signed the consent and he is aware of this. SURGEON: Osvaldo House DO DESCRIPTION OF PROCEDURE: The patient was taken to the operative suite, laid in the left lateral decubitus position. Spinal was placed by anesthesia. Once spinal was set up, he was put supine and then moved over to the Chadwicks table. Once he was positioned, he was given 2 grams of Ancef. The reduction maneuver was made with fluoro and once a nice reduction was made, we prepped and draped the left hip. A time-out was performed and everyone was in agreement with the correct site, side patient, and procedure. Incision was then began just proximal to the greater trochanter of the left hip and a guide pin was put in. Once it was in good position and then put down the canal, the opening reamer was used and then this was removed as well as the guide pin. The 11 x 180 nail was placed down the femur. Then a lag screw incision was made through the guide and positioned on the AP and lateral. Once it was in appropriate position and measured to be 105, a reamer was used to ream out and position for it and then a 105 lag screw was put in, 10.5 mm. Then, an anti-rotation 85-mm screw was placed above that. Then a distal static screw was put as a short nail, 5 x 36-mm cortical screw was placed through the static hole. The jig was then removed and the sites were irrigated. All 3 incisions were irrigated. The IT band was closed in the proximal excision with a #1 Vicryl in a eidpwb-vs-fbuet fashion, and the skin was closed with 2-0 Vicryl and 4-0 Monocryl ran on the skin on each of the 3 incisions and Dermabond was placed on it and then Telfa and then Tegaderm were placed on each of the incisions. The patient was awakened and taken to recovery in stable condition. Blood loss was approximately 100 mL. Complications were none. TRANSINT:[id number] Voice Confirmation ID: [id number] DOCUMENT ID: [id number] OPERATIVE REPORT [id number] BETTY LANDON JR, MICHAEL D, DO at 0733 CC: [id number] DICTATION DATE: 05/25/18 1337 HOSPITALITY JOB TITLES: 05/25/18 2350 ADM IN [facility] [address] [place] [address]
[2018-05-26 09:10] VITALS: BP 119/56
--- NOTE | 2018-05-26 09:40 | NUR ---
I UNIT PRBC TRANSFUSION INITIATED. SEE INFUSION CARD FOR VSS. FAMILY IS AT BEDSIDE. UNIT OF PRBC VERIFIED WITH DAYSI DE PAZ LPN. WILL MONITOR PT CLOSELY FOR NEXT 15 MINUTES. BED IS IN THE LOWEST POSITION. CALL LIGHT AND BEDSIDE TABLE ARE WITHIN REACH.
--- NOTE | 2018-05-26 10:00 | NUR ---
PT WITH ELEVATED TEMPERATURE SINCE STARTING PRBC TRANSFUSION. TYLENOL 500MG GIVEN PER VERBAL ORDER FROM IDALIA IRVIN. PT DENIES PRESENCE OF DYSPNEA AND SOB. SEE EMAR AND TRANSFUSION CARD FOR OTHER VSS. WILL AWAIT FURTHER ORDERS. TRANSFUSION IS STOPPED AT THIS TIME.
--- NOTE | 2018-05-26 10:00 | NUR ---
ELEVATATED TEMPATURE OF 100.1 AFTER 15MIN OF TRANSFUSION, DIAPHORETIC, SHORTNESS OF BREATH, INFORMED MONICA LAMBERT APRN, SHE GAVE ORDER TO ADMINISTERED 500MG TYLENOL ONE TIME AND CONTINUE TRANSFUSION WITH CLOSE MONITORING, SELAM GOSS CHARGE IS AWARE AND HAS BEEN DOING REGULAR ASSESSMENTS(SEE NOTES).
--- NOTE | 2018-05-26 10:10 | NUR ---
TRANSFUSION RESTARTED PER IDALIA IRVIN. BP IS 87/35, KS 98, TEMP IS 99.2 AXILLARY. O2 SAT IS 93% ON 6L VIA HIGHFLOW NC. WILL RECHECK BP WITH MANUAL CUFF. IDALIA IRVIN NOTIFIED OF HYPOTENSION.
--- NOTE | 2018-05-26 10:22 | NUR ---
MANUAL BP IS 95/50 LEFT ARM WITH PT IN SITTING POSITION HEART RATE CURRENTLY AT 89, 02 @ 94%. RESPIRATORY IN ROOM AT BEDSIDE INITIATING BREATHING TREATMENT. FAMILY IS AT BEDSIDE. BED IS IN THE LOWEST POSITION . CALL LIGHT AND BEDSIDE TABLE ARE WITHIN REACH. WILL CONT TO CLOSELY MONITOR.
--- NOTE | 2018-05-26 11:23 | NUR ---
AWAKE AND ALERT, TEMPATURE HOLDING STEADY AT 99 UNDER ARM, OBSERVED NO DYSPNEA. BLOOD TRANSFUSION CONTINUES. BP OF 102/68. DENIES ANY NEEDS OR DISCOMFORTS, BED LOWERED AND LOCKED, CALL LIGHT WITHIN REACH. CPOC
[2018-05-26 13:02] VITALS: BP 112/68
--- NOTE | 2018-05-26 13:30 | NUR ---
UNIT #2 OF PRBC TRANSFUSION INITIATED. SEE TRANSFUSION CARD FOR VSS. FAMILT AT BEDSIDE. BED IS IN THE LOWEST POSITION. CALL LIGHT AND BEDSIDE TABLE ARE WITHIN REACH. WILL CONT TO CLOSELY MONITOR.
--- NOTE | 2018-05-26 17:02 | NUR ---
BLOOD TRANSFUSION COMPLETE, TOLERATED WELL, TEMPATURE REMAINED AROUND 99.4-99.8 DURING ENTIRE TRANSFUSION. DENIES ANY CURRENT NEEDS OR DISCOMFORTS, BED LOWERED AND LOCKED, CALL LIGHT WITHIN REACH. CPOC
[2018-05-26 17:32] VITALS: BP 112/64
--- NOTE | 2018-05-26 19:30 | NUR ---
RECEIVED REPORT, ASSUMED CARE, FAMILY AT BEDSIDE, REQUESTING A BATH, CALL LIGHT IN REACH, BED ALARM ON, LOPEZ TO GRAVITY, BED LOWEST POSITION, ASSESSMENT COMPLETE, WILL CONTINUE POC
[2018-05-26 20:00] VITALS: BP 146/84
[2018-05-27] VITALS: BP 138/76
--- NOTE | 2018-05-27 02:35 | NUR ---
PT RESTING QUIETLY, EYES CLOSED. RESP EVEN, UNLABORED. NO DISTRESS NOTED. AGREEN WITH SCIENCE TECHNICIAN'S ASSESSMENT, CONTINUE PLAN OF CARE.
[2018-05-27 03:00] VITALS: BP 130/61
[2018-05-27 05:14] LABS: BASOPHILS 0 % (0-2); HEMATOCRIT 26.1 % (42.0-54.0); IMMATURE GRANULOCYTES 0.3 % (0-5); MCH 31.1 pg (26.0-34.0); MCHC 33.7 g/dL (31.0-37.0); MEAN PLATELET VOLUME 9.6 fL (7.4-10.4); MONOCYTES 12.5 % (2-11); NEUTROPHILS 75.2 % (40-80); PLATELET COUNT 163 10x3/uL (130-400); RDW 16.5 % (11.5-14.5); WBC 6.5 10x3/uL (4.8-10.8)
[2018-05-27 05:29] LABS: HEMOGLOBIN 8.8 g/dL (13.5-17.5); MCV 92.2 fL (80.0-100.0); RBC 2.83 10x6/uL (4.20-6.10)
[2018-05-27 05:55] LABS: CALC OSMOLALITY 270 mosm/kg (275-300); CALCIUM 7.6 mg/dL (8.5-10.1); CARBON DIOXIDE 19.3 mmol/L (21.0-32.0); CHLORIDE - SERUM 105 mmol/L (98-107); GLUCOSE 105 mg/dL (74-106); POTASSIUM - SERUM 4.2 mmol/L (3.5-5.1); SODIUM 135 mmol/L (136-145); UREA NITROGEN 15 mg/dL (7-18); eGFR NON AFRICAN AMERICAN 77 mL/min (90-120)
[2018-05-27 08:52] VITALS: BP 143/80
--- NOTE | 2018-05-27 11:12 | NUR ---
Rehab Note- Acute Inpatient Rehab prescreen order received. The patient is currently receiving blood and being monitored closely. Will plan for [facility] Acute Inpatient Rehab stay when medically stable and ready for discharge from the acute hospital. Will follow at this time. Thank you for this referral! Sun Salas RN Clinical Liaison, [facility] Rehab
--- NOTE | 2018-05-27 13:01 | NUR ---
NUTRITION F/U PT TOLERATING REG DIET, 100% INTAKE BREAKFAST. WILL CONTINUE TO PROVIDE DIET, HONOR FOOD PREFERENCES. RD FOLLOWING
[2018-05-27 13:40] VITALS: BP 146/66
[2018-05-27 16:00] VITALS: BP 100/45
[2018-05-27 21:07] VITALS: BP 143/102
[2018-05-27 21:16] LABS: BASOPHILS 0.1 % (0-2); EOSINOPHILS 0.2 % (0-7); HEMATOCRIT 28.8 % (42.0-54.0); HEMOGLOBIN 9.1 g/dL (13.5-17.5); IMMATURE GRANULOCYTES 0.8 % (0-5); LYMPHOCYTES 13.9 % (15-50); MCH 30.8 pg (26.0-34.0); MCHC 31.6 g/dL (31.0-37.0); MEAN PLATELET VOLUME 9.6 fL (7.4-10.4); MONOCYTES 11.9 % (2-11); NEUTROPHILS 73.1 % (40-80); PLATELET COUNT 173 10x3/uL (130-400); RBC 2.95 10x6/uL (4.20-6.10); RDW 16.3 % (11.5-14.5)
[2018-05-27 21:20] LABS: MCV 97.6 fL (80.0-100.0); WBC 9.2 10x3/uL (4.8-10.8)
[2018-05-27 21:35] LABS: ALBUMIN 2.3 g/dL (3.4-5.0); BILIRUBIN - TOTAL 0.86 mg/dL (0.2-1.3); PROTEIN - SERUM 5.7 g/dL (6.4-8.2)
[2018-05-27 21:40] LABS: ANION GAP 24.8 mmol/L (8-16); CARBON DIOXIDE 13.7 mmol/L (21.0-32.0); CREATININE - SERUM 1.6 mg/dL (0.6-1.3); POTASSIUM - SERUM 5.5 mmol/L (3.5-5.1)
--- NOTE | 2018-05-28 09:43 | NUR ---
pT HAVING INCREASE AGATION , DECREASED LOC , COOL CLAMMY. CALLED A [facility] RESPONICE. STAFF FOR [facility] ARIVED PT CONTIUED TO DECLINE WENT TO [facility]. RN'S FROM ICU RESPIRATORY, AND DR SCHWARTZ AND DR BOONE CAME TIME OF ARREST 2118 TIME OF 2143. FAMILY PRESENT AND INFORMED PROGRESS HAPPENED AND MADE CHOICES NEEDED. 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 CALL TO JONH SPOKE WITH TRACIE REF# [id number] FAMILT HAD PER ARANGED WITH [facility]. FAMILY TOOK ALL PERSONAL ITAMES WITH THEM. AND STAYED UNTILL HOME PICKED UP MR. HAMMOND.
[2018-05-28 12:17] LABS: FOLATE (FOLIC ACID) - SERUM 16.6 ng/mL (>3.0)
--- NOTE | 2018-06-03 11:58 | MORECARE ---
CASE MANAGEMENT DISCHARGE SUMMARY PATIENT: BETTY HAMMOND JR UNIT: [id number] ADM DATE: 05/24/18 AGE: 78 : 40 SEX: M ROOM/BED: D.2208 AUTHOR: ADILIA OLIVEIRA PHYSICIAN: REFERRING PHYSICIAN: REYNALDO MARINA MD DATE OF SERVICE: 06/03/18 Discharge Plan Patient Name: BETTY HAMMOND Facility: [facility]:[place] : 1940 Planned Disposition: Inpatient Rehab Anticipated Discharge Date: 05/27/18 Discharge Date: 05/27/2018 Expected LOS: 3 Initial Reviewer: [email or web address] Initial Review Date: 05/24/2018 Generated: 06/03/18 12:58 pm DCP- Discharge Planning Updated by [email or web address]: Aline Contreras on 05/24/18 1:[address] Patient Name: BETTY HAMMOND Admission Status: ER Accout number: [id number] Admission Date: 05-24-2018 : 1940 Admission Diagnosis: Attending: REYNALDO MARINA Current LOS: 1 Anticipated DC Date: 05-27-2018 Planned Disposition: Inpatient Rehab Primary Insurance: MEDICARE A & B Discharge Planning Comments: CM met with patient and his (NELSON Rey to complete initial dc planning assessment. CM educated patient and his on the CM role and verbal consent given by patient's to complete assessment. Patient had a cystoscopy yesterday and is not oriented today due to the anesthesia. Patient lives at home with his . She reports he is mostly independent in his care but she does have to assist him with putting on his pressure stockings and tying his shoes. She reports she also puts his medications together for him as well. CM discussed availability of home health, rehab services, and medical equipment. Candido reports that the last time he broke his other hip he went to inpatient rehab and she would like to consider that again once he is medically stable. Cm spoke to Sun in Inpatient Rehab letting her know of the potential referral. Patient choice form signed by Candido and placed on patient's chart. CM will continue to follow and will assist as needed with dc plans/needs. Assembler Handbags: Aline Contreras Appended by Aline Contreras on 05/24/2018 14:41 ROTATING FIELD ASSEMBLER: Patient choice form signed by patient's and she was given the original and 2nd signed form placed on patients chart. DCPIA - Discharge Planning Initial Assessment Updated by [email or web address]: Aline Contreras on 05/24/18 2:26 pm * Is the patient Alert and Oriented? No * How many steps to enter\exit or inside your home? [place] * PCP Dr. Ulrich- business law professor Dr. Saravia - Inspector Floor Dr. Robbins - Urologist Dr. Diaz - Nathan - Neurologist * Pharmacy [facility] * Preadmission Environment Home with Family * ADLs Partial Dependent * Partial ADLs (Assistance needed) Dressing Medication Management * Equipment Cane CPAP Nebulizer Oxygen Wheelchair * List name and contact numbers for known caregivers / representatives who currently or will assist patient after discharge: Candido MURO - - [phone] * Verbal permission to speak to the caregivers and representatives has been obtained from the patient. Yes * Community resources currently utilized Other * Please name any agencies selected above. Was going to outpatient therapy for his shoulder at [facility] at the [place] [facility] the [facility]. * Additional services required to return to the preadmission environment? Yes * Can the patient safely return to the preadmission environment? No * Has this patient been hospitalized within the prior 30 days at any hospital? No Last DP export: 05/24/18 1:44 pm Patient Name: BETTY HAMMOND Page [id number] at 1158 All edits/amendments must be made on the electronic document DICTATION DATE: 06/03/181156 SERVICE TRANSFORMER REPAIR SUPERVISOR: EZRA 06/03/181156 RPT#: [id number] DC DATE:05/27/18 STATUS: DIS IN [facility] [address] [place] [address] END OF REPORT
== END 2018-05-27 21:45 | DRG 480 ==
LOC: D.ER 11:33 → D.EDHOLD 14:03 → D.MS 14:03
PROVIDERS: Family Medicine; Orthopaedic Surgery; ADMIT Internal Medicine Nephrology; ATTEND Internal Medicine Nephrology
PROC: 0QS706Z Reposition Left Upper Femur with Intramedullary Internal Fixation Device, Open Approach (ICD-10-PCS; principal; 2018-05-25 09:45)
DX: S72.142A Displaced intertrochanteric fracture of left femur, initial encounter for closed fracture (principal); N17.0 Acute kidney failure with tubular necrosis; J96.00 Acute respiratory failure, unspecified whether with hypoxia or hypercapnia; I63.9 Cerebral infarction, unspecified; I26.99 Other pulmonary embolism without acute cor pulmonale; T83.511A Infection and inflammatory reaction due to indwelling urethral catheter, initial encounter; D62 Acute posthemorrhagic anemia; N17.9 Acute kidney failure, unspecified; N39.0 Urinary tract infection, site not specified; F03.91 Unspecified dementia, unspecified severity, with behavioral disturbance; E87.1 Hypo-osmolality and hyponatremia; W01.0XXA Fall on same level from slipping, tripping and stumbling without subsequent striking against object, initial encounter; G20 Parkinson's disease; F02.80 Dementia in other diseases classified elsewhere, unspecified severity, without behavioral disturbance, psychotic disturbance, mood disturbance, and anxiety; I10 Essential (primary) hypertension; J44.9 Chronic obstructive pulmonary disease, unspecified; D50.9 Iron deficiency anemia, unspecified; I46.9 Cardiac arrest, cause unspecified; R40.2354 Coma scale, best motor response, localizes pain, 24 hours or more after hospital admission; R40.2134 Coma scale, eyes open, to sound, 24 hours or more after hospital admission; R40.2244 Coma scale, best verbal response, confused conversation, 24 hours or more after hospital admission; R40.2243 Coma scale, best verbal response, confused conversation, at hospital admission; F06.8 Other specified mental disorders due to known physiological condition; I71.4 Abdominal aortic aneurysm, without rupture; I95.9 Hypotension, unspecified; I50.9 Heart failure, unspecified; R09.2 Respiratory arrest